=== PATIENT | female | born 1990 | race Caucasian/White ===

== ENCOUNTER 2017-03-13 20:00 | Emergency (ER) | payer MEDICAID ==
[~2017-03-13] VITALS: Ht 157.5 cm; Wt 50.0 kg
[2017-03-13 20:24] VITALS: Ht 157.5 cm; Wt 50.0 kg
[2017-03-13] MEDS ORDERED: SOD CHLORIDE 0.9% 1,000 ML IV STA (22:56)
[2017-03-13] MEDS ORDERED: METOCLOPRAMIDE 10 MG INJ IV STA (22:56)
[2017-03-13] MEDS ORDERED: ACETAMINOPHEN 500 MG TAB PO STA (22:57)
[2017-03-13 23:34] LABS: BASOPHILS % 0.6 % (0.0-2.0); EOSINOPHILS # 0.1 10^3/ul (0.0-0.5); EOSINOPHILS % 1.1 % (0.0-7.0); HEMATOCRIT 30.8 % (37.0-47.0); HEMOGLOBIN 10.5 g/dl (12.0-16.0); LYMPHOCYTES # 2.1 10^3/ul (0.8-2.9); LYMPHOCYTES % 32.3 % (15.0-51.0); MEAN CORPUSCULAR HEMOGLOBIN 30.3 pg (29.0-33.0); MEAN CORPUSCULAR HGB CONC 34.1 g/dl (32.0-37.0); MEAN CORPUSCULAR VOLUME 88.8 fl (82.0-101.0); MEAN PLATELET VOLUME 10.1 fl (7.4-10.4); MONOCYTE # 0.7 10^3/ul (0.3-0.9); MONOCYTES % 10.4 % (0.0-11.0); NEUTROPHIL # 3.5 10^3/ul (1.6-7.5); NEUTROPHILS % 55.3 % (39.0-77.0); PLATELET COUNT 222 10^3/UL (140-415); RED BLOOD COUNT 3.47 10^6/ul (4.20-5.40); RED CELL DISTRIBUTION WIDTH 13.1 % (11.5-14.5); WHITE BLOOD COUNT 6.3 10^3/ul (4.8-10.8)
[2017-03-13 23:46] LABS: ADD UMIC YES; UR ASCORBIC ACID NEGATIVE (NEGATIVE); UR BACTERIA FEW /HPF (NONE SEEN); UR BILIRUBIN (Dip) NEGATIVE (NEGATIVE); UR BLOOD (Dip) NEGATIVE (NEGATIVE); UR CLARITY CLEAR (CLEAR); UR COLOR YELLOW (YELLOW); UR GLUCOSE (Dip) NEGATIVE (NEGATIVE); UR KETONES (Dip) TRACE mg/dL (NEGATIVE); UR LEUKOCYTE ESTERASE (Dip) 1+ Leu/ul (NEGATIVE); UR NITRITE (Dip) NEGATIVE (NEGATIVE); UR RBC 1 /HPF (0-5); UR SPECIFIC GRAVITY (Dip) 1.011 (1.003-1.030); UR SQUAMOUS EPITHELIAL CELL FEW /HPF (FEW); UR TOTAL PROTEIN (Dip) NEGATIVE (NEGATIVE); UR UROBILINOGEN (Dip) NEGATIVE (NEGATIVE)
[2017-03-13] MEDS ORDERED: METO10TA92 PO (23:50)
[2017-03-13] MEDS ORDERED: ACET500C5 PO (23:51)
[2017-03-13 23:53] LABS: ALBUMIN/GLOBULIN RATIO 1.14; BILIRUBIN,INDIRECT 0.5 mg/dl (0-1.1); BILIRUBIN,TOTAL 0.5 mg/dl (0.2-1.3); CALCIUM 9.3 mg/dl (8.4-10.2); CREATININE 0.6 mg/dl (0.44-1.00); POTASSIUM 3.4 mmol/L (3.5-5.1); TOTAL PROTEIN 7.5 g/dl (6.1-8.1)
--- NOTE | 2017-03-13 23:54 | ERD ---
ER Documentation Chief Complaint Date/Time DATE: 03/13/17 TIME: 23:52 Chief Complaint headache, N/V, last vomit was 1230 pm - pt HPI 26-year-old female is approximately 7 weeks by dates. She is a G1 para 0. She has had vomiting since early . The vomiting is NON bilious and nonbloody has continued this week patient has epigastric abdominal pain and is worried she is not able to drink water.. She tried to see her OB provider but they were closeD. She denies fevers, vaginal bleeding, lower abdominal pain, urinary complaints. She has a bitemporal headache. She denies neck stiffness or rashes. ROS All systems reviewed and are negative except as per history of present illness. Medications Home Meds Active Scripts Cephalexin* (Keflex*) 500 Mg Capsule, 500 MG PO QID for 5 Days, CAP Prov:ODALIS HUYNH MD 03/13/17 Acetaminophen* (Tylophen*) 500 Mg Capsule, 1 CAP PO Q6H Y for PAIN AND OR ELEVATED TEMP, #15 CAP Prov:ODALIS HUYNH MD 03/13/17 Metoclopramide* (Reglan*) 10 Mg Tablet, 10 MG PO Q6 Y for NAUSEA AND/OR VOMITING , #20 TAB Prov:ODALIS HUYNH MD 03/13/17 Allergies Allergies: Coded Allergies: No Known Allergy (Unverified , 03/13/17) PMhx/Soc Medical and Surgical Hx: pt denies Medical Hx, pt denies Surgical Hx Hx Alcohol Use: No Hx Substance Use: No Hx Tobacco Use: No Smoking Status: Never smoker Physical Exam Vitals Vital Signs Date Time Temp Pulse Resp B/P Pulse Ox O2 Delivery O2 Flow Rate FiO2 03/13/17 20:24 98.6 62 20 107/56 98 Physical Exam Const: [], no apparent distress. Head: Atraumatic Eyes: Normal Conjunctiva ENT: Normal External Ears, Nose and Mouth. Neck: Full range of motion..~ No meningismus. Resp: Clear to auscultation bilaterally Cardio: Regular rate and rhythm, no murmurs Abd: Soft, normal epigastric tenderness., non distended. Normal bowel sounds Skin: No petechiae or rashes Back: No midline or flank tenderness Ext: No cyanosis, or edema Neur: Awake and alert Psych: Normal Mood and Affect Result Diagram: 03/13/17 2330 03/13/17 2330 Results 24 hrs Laboratory Tests Test 03/13/17 23:30 White Blood Count 6.310^3/ul Red Blood Count 3.4710^6/ul Hemoglobin 10.5g/dl Hematocrit 30.8% Mean Corpuscular Volume 88.8fl Mean Corpuscular Hemoglobin 30.3pg Mean Corpuscular Hemoglobin Concent 34.1g/dl Red Cell Distribution Width 13.1% Platelet Count 01172^3/UL Mean Platelet Volume 10.1fl Neutrophils % 55.3% Lymphocytes % 32.3% Monocytes % 10.4% Eosinophils % 1.1% Basophils % 0.6% Nucleated Red Blood Cells % 0.0/100WBC Neutrophils # 3.510^3/ul Lymphocytes # 2.110^3/ul Monocytes # 0.710^3/ul Eosinophils # 0.110^3/ul Basophils # 0.010^3/ul Nucleated Red Blood Cells # 0.010^3/ul Urine Color YELLOW Urine Clarity CLEAR Urine pH 7.0 Urine Specific [place] 1.011 Urine Ketones TRACEmg/dL Urine Nitrite NEGATIVEmg/dL Urine Bilirubin NEGATIVEmg/dL Urine Urobilinogen NEGATIVEmg/dL Urine Leukocyte Esterase 1+Brennan/ul Urine Microscopic RBC 1/HPF Urine Microscopic WBC 9/HPF Urine Squamous Epithelial Cells FEW/HPF Urine Bacteria FEW/HPF Urine Hemoglobin NEGATIVEmg/dL Urine Glucose NEGATIVEmg/dL Urine Total Protein NEGATIVEmg/dl Sodium Level 135mmol/L Potassium Level 3.4mmol/L Chloride Level 102mmol/L Carbon Dioxide Level 26mmol/L Anion Gap 10 Blood Urea Nitrogen 7mg/dl Creatinine 0.60mg/dl Glucose Level 84mg/dl Calcium Level 9.3mg/dl Total Bilirubin 0.5mg/dl Direct Bilirubin 0.00mg/dl Indirect Bilirubin 0.5mg/dl Aspartate Amino Transf (AST/SGOT) 35IU/L Alanine Aminotransferase (ALT/SGPT) 51IU/L Alkaline Phosphatase 61IU/L Total Protein 7.5g/dl Albumin 4.0g/dl Globulin 3.50g/dl Albumin/Globulin Ratio 1.14 Lipase 69U/L Current Medications Medications (Trade) Dose Ordered Sig/Jose Eduardo Route PRN Reason Start Time Stop Time Status Last Admin Dose Admin Sodium Chloride (NS) 1,000 ml @ 1,000 mls/hr Q1H STAT IV 03/13/17 22:56 03/13/17 23:55 DC 03/13/17 23:27 Metoclopramide HCl (Reglan) 10 mg ONCE STAT IV 03/13/17 22:56 03/13/17 22:58 DC 03/13/17 23:27 Acetaminophen (Tylenol Tab) 500 mg ONCE STAT PO 03/13/17 22:57 03/13/17 22:58 DC 03/13/17 23:27 Cephalexin (Keflex) 500 mg ONCE ONCE PO 03/14/17 00:00 03/14/17 00:07 DC 03/14/17 00:14 Potassium Chloride (Klor-Con 20) 40 meq ONCE ONCE PO 03/14/17 00:07 03/14/17 00:08 DC 03/14/17 00:15 Procedures/MDM CBC is normal. There is mild anemia of 10.5 hemoglobin. Patient was given Reglan 10 mg IV and 1 L saline IV. CMP and urinalysis pending. Patient presents with hyperemesis or vomiting of without signs or symptoms of lower abdominal pain or vaginal bleeding. Current signs or symptoms do not suggest appendicitis, complications of , ectopic given that she has no pelvic pain. .. Potassium 3.4.. Bicarbonate normal as well as remainder of CMP.. Patient given 40 mEq potassium. Patient felt better after observation treatment. Patient has OB follow-up with the next week. She will treated with Reglan at home, instructions for small regular meals and primary care and OB follow-up and return precautions for bleeding, lower abdominal pain , new worsening symptoms. Departure Diagnosis: Primary Impression: Nausea and vomiting Vomiting type: unspecified Vomiting Intractability: unspecified Qualified Code: R11.2 - Nausea and vomiting, intractability of vomiting not specified, unspecified vomiting type Additional Impression: UTI (urinary tract infection) Urinary tract infection type: acute cystitis Hematuria presence: without hematuria Qualified Code: N30.00 - Acute cystitis without hematuria Condition: Stable Patient Instructions: Hyperemesis Gravidarum Additional Instructions: Follow-up with OB this week. Return otherwise for bleeding, fevers, new or worsening symptoms. Report to eat small regular meals throughout the day. ODALIS HUYNH MD Mar 13, 2017 23:54
[2017-03-13] MEDS ORDERED: CEPH-443 PO (23:55)
[2017-03-14] MEDS ORDERED: CEPHALEXIN 500 MG CAP PO ONE
[2017-03-14] MEDS ORDERED: POTASSIUM CHLORIDE (SR) 20 MEQ TAB PO ONE (00:07)
[2017-03-14 00:38] VITALS: BP 112/66; PULSE 70; RESP 20; TEMP 98.2
== END 2017-03-14 00:39 | disposition home or self-care (01) ==
LOC: FTE 20:00
DX: O21.9 Vomiting of pregnancy, unspecified (principal); O23.11 Infections of bladder in pregnancy, first trimester; Z3A.00 Weeks of gestation of pregnancy not specified
CPT/HCPCS: 36415; 80053; 81001; 83690; 85025; 96374; J2765; J7030; Z7502; Z7610